=== PATIENT | female | born 1940 | race Caucasian/White ===

== ENCOUNTER 2017-04-19 19:52 | Emergency (ER) | payer MEDICARE, OTHER ==
[~2017-04-19] VITALS: Ht 167.6 cm; Wt 80.0 kg
[2017-04-19 20:55] LABS: BASOPHILS # (AUTO) 0.01 x10^3/uL (0-0.1); BASOPHILS % (AUTO) 0 % (0-1); EOSINOPHILS # (AUTO) 0.06 x10^3/uL (0-0.4); EOSINOPHILS % (AUTO) 2 % (1-7); LYMPHOCYTES # (AUTO) 0.79 x10^3/uL (1-3.4); LYMPHOCYTES % (AUTO) 24 % (22-44); MD NO; MEAN CORPUSCULAR HEMOGLOBIN 32.9 pg (27.0-34.8); MEAN CORPUSCULAR HGB CONC 34.7 g/dL (32.4-35.8); MEAN CORPUSCULAR VOLUME 94.9 fL (80-100); MEAN PLATELET VOLUME 7.7 fL (7.4-10.4); MONOCYTES % (AUTO) 15 % (2-9); NEUTROPHILS # (AUTO) 1.98 x10^3/uL (1.8-6.8); NEUTROPHILS % (AUTO) 59 % (42-75); PLATELET COUNT 135 x10^3/uL (130-400); RED BLOOD COUNT 3.89 x10^6/uL (3.82-5.3); RED CELL DISTRIBUTION WIDTH 13.2 % (9.6-15.2)
[2017-04-19 21:03] LABS: ANION GAP 7 mmol/L (5-15); CALCIUM 8.3 mg/dL (8.5-10.1); CHLORIDE 100 mmol/L (98-107)
[2017-04-19 21:07] LABS: ALANINE AMINOTRANSFERASE 20 U/L (12-78); ALKALINE PHOSPHATASE 71 U/L (45-117); BILIRUBIN,TOTAL 0.6 mg/dL (0.2-1.0); CREATININE 1.01 mg/dL (0.55-1.02); TOTAL PROTEIN 5.7 g/dL (6.4-8.2)
[2017-04-19 21:52] LABS: CULTURE INDICATED? YES; MICROSCOPIC INDICATED
[2017-04-19 23:35] VITALS: BP 143/79
== END 2017-04-19 23:37 | disposition home or self-care (01) ==
LOC: ED 22:04
DX: R41.82 Altered mental status, unspecified (principal); M25.511 Pain in right shoulder; N30.90 Cystitis, unspecified without hematuria; I10 Essential (primary) hypertension; G30.9 Alzheimer's disease, unspecified; E03.9 Hypothyroidism, unspecified; F02.80 Dementia in other diseases classified elsewhere, unspecified severity, without behavioral disturbance, psychotic disturbance, mood disturbance, and anxiety
CPT/HCPCS: 36415; 70450; 80053; 81001; 85025; 87086; 93005

== ENCOUNTER 2017-11-09 22:38 | Inpatient (IN) | payer MEDICARE, OTHER ==
[~2017-11-09] VITALS: Ht 170.2 cm; Wt 77.0 kg
[2017-11-09] MEDS ORDERED: ONDANSETRON 2MG/ML, 2ML ONE (22:54)
[2017-11-09] MEDS ORDERED: MORPHINE SULFATE 4 MG/ML, 1ML ONE (22:54)
[2017-11-09] MEDS ORDERED: MORPHINE SULFATE 4 MG/ML, 1ML IVPush PRN (23:00)
[2017-11-09] MEDS ORDERED: SODIUM CHLORIDE FLUSH 10ML SYR IVF ONE (23:00)
[2017-11-09] MEDS ORDERED: ONDANSETRON 2MG/ML, 2ML IVPush ONE (23:00)
[2017-11-09 23:06] LABS: BASOPHILS # (AUTO) 0.04 x10^3/uL (0-0.1); BASOPHILS % (AUTO) 1 % (0-1); EOSINOPHILS # (AUTO) 0.31 x10^3/uL (0-0.4); EOSINOPHILS % (AUTO) 5 % (1-7); LYMPHOCYTES # (AUTO) 1.57 x10^3/uL (1-3.4); LYMPHOCYTES % (AUTO) 26 % (22-44); MD NO; MEAN CORPUSCULAR HEMOGLOBIN 33.1 pg (27.0-34.8); MEAN CORPUSCULAR VOLUME 97.1 fL (80-100); MEAN PLATELET VOLUME 7.4 fL (7.4-10.4); MONOCYTES # (AUTO) 0.49 x10^3/uL (0.2-0.8); MONOCYTES % (AUTO) 8 % (2-9); NEUTROPHILS # (AUTO) 3.63 x10^3/uL (1.8-6.8); NEUTROPHILS % (AUTO) 60 % (42-75); PLATELET COUNT 184 x10^3/uL (130-400); RED BLOOD COUNT 4.23 x10^6/uL (3.82-5.3); RED CELL DISTRIBUTION WIDTH 13.7 % (9.6-15.2)
[2017-11-09 23:18] LABS: ALBUMIN 3.4 g/dL (3.4-5.0); ANION GAP 8 mmol/L (5-15); CALCIUM 9.1 mg/dL (8.5-10.1); CHLORIDE 93 mmol/L (98-107); CREATININE 0.69 mg/dL (0.55-1.02)
[2017-11-10] MEDS ORDERED: DIVA125T31 PO (00:34)
[2017-11-10] MEDS ORDERED: LISI-170 PO (00:34)
[2017-11-10] MEDS ORDERED: MELO15TA24 PO (00:34)
[2017-11-10] MEDS ORDERED: LEVO50TA5 PO (00:34)
[2017-11-10] MEDS ORDERED: MIRT15TA4 PO (00:34)
[2017-11-10] MEDS ORDERED: RISP1TAB3 PO (00:34)
[2017-11-10] MEDS ORDERED: POLY17PO18 PO (00:34)
[2017-11-10] MEDS: DIVALPROEX 125 MG TABLET.DR PO SCH ×2 (01:00→21:17)
[2017-11-10] MEDS: HEPARIN 5,000 UNITS/ML, 1ML SQ SCH ×3 (01:00→16:20)
[2017-11-10] MEDS ORDERED: ACETAMINOPHEN 325 MG TABLET PO PRN ×2 (01:00→14:00)
[2017-11-10] MEDS: PLEASE ENTER ALLERGIES MC SCH ×15 (01:00→15:43)
[2017-11-10] MEDS ORDERED: ONDANSETRON 2MG/ML, 2ML IVPush PRN (01:00)
[2017-11-10] MEDS ORDERED: BISACODYL 10 MG SUPP PR PRN (01:00)
[2017-11-10] MEDS ORDERED: POLYETHYLENE GLYCOL 17 GM PACKET PO PRN (01:00)
[2017-11-10] MEDS: SODIUM CHLORIDE 0.9% 1,000 ML IV SCH ×3 (01:37→18:16)
[2017-11-10 02:52] VITALS: BP 156/89
[2017-11-10 05:06] LABS: BASOPHILS # (AUTO) 0.02 x10^3/uL (0-0.1); BASOPHILS % (AUTO) 0 % (0-1); EOSINOPHILS # (AUTO) 0.01 x10^3/uL (0-0.4); EOSINOPHILS % (AUTO) 0 % (1-7); LYMPHOCYTES # (AUTO) 0.55 x10^3/uL (1-3.4); LYMPHOCYTES % (AUTO) 9 % (22-44); MD NO; MEAN CORPUSCULAR HEMOGLOBIN 33.3 pg (27.0-34.8); MEAN PLATELET VOLUME 7.6 fL (7.4-10.4); MONOCYTES # (AUTO) 0.41 x10^3/uL (0.2-0.8); MONOCYTES % (AUTO) 7 % (2-9); NEUTROPHILS # (AUTO) 4.92 x10^3/uL (1.8-6.8); NEUTROPHILS % (AUTO) 83 % (42-75); PLATELET COUNT 188 x10^3/uL (130-400); RED BLOOD COUNT 3.57 x10^6/uL (3.82-5.3); RED CELL DISTRIBUTION WIDTH 13.1 % (9.6-15.2)
[2017-11-10 05:17] LABS: ALANINE AMINOTRANSFERASE 10 U/L (12-78); ALBUMIN 2.6 g/dL (3.4-5.0); ANION GAP 6 mmol/L (5-15); CALCIUM 8.4 mg/dL (8.5-10.1); CHLORIDE 95 mmol/L (98-107)
[2017-11-10 05:20] LABS: ALKALINE PHOSPHATASE 67 U/L (45-117); BILIRUBIN,TOTAL 0.6 mg/dL (0.2-1.0); CREATININE 0.55 mg/dL (0.55-1.02); TOTAL PROTEIN 5.3 g/dL (6.4-8.2)
[2017-11-10 06:51] VITALS: BP 151/84
[2017-11-10] MEDS: MIRTAZAPINE 15 MG TABLET PO SCH (07:19)
[2017-11-10] MEDS: SENNA/DOCUSATE TABLET PO SCH (07:19)
[2017-11-10] MEDS: LISINOPRIL 20 MG TABLET PO SCH (07:19)
[2017-11-10] MEDS: LEVOTHYROXINE 50 MCG TABLET PO SCH (07:19)
[2017-11-10] MEDS: morphine SULFATE 10 MG/ML, 1ML IVPush PRN ×3 (08:51→19:47)
[2017-11-10] MEDS ORDERED: RISPERIDONE 1 MG PO SCH (09:00)
[2017-11-10 12:51] VITALS: BP 176/99
[2017-11-10] MEDS: ENALAPRILAT 1.25 MG/ML, 2ML IVPush PRN (13:13)
[2017-11-10] MEDS ORDERED: FENTANYL PF 100 MCG/2ML ONE (13:47)
[2017-11-10] MEDS ORDERED: HYDROmorphone 1 MG/ML, 1ML IV PRN (14:00)
[2017-11-10] MEDS ORDERED: LABETALOL 5MG/ML, 20ML IV PRN (14:00)
[2017-11-10] MEDS ORDERED: ONDANSETRON 2MG/ML, 2ML IV PRN (14:00)
[2017-11-10] MEDS ORDERED: ALBUTEROL/IPRATROPIUM 2.5MG/0.5MG, 3 ML NPPB PRN (14:00)
[2017-11-10] MEDS ORDERED: MIDAZOLAM 1 MG/ML, 2ML IV PRN (14:00)
[2017-11-10] MEDS ORDERED: FENTANYL PF 100 MCG/2ML IV PRN (14:00)
[2017-11-10] MEDS ORDERED: HALOPERIDOL 5 MG/ML IV PRN (14:00)
[2017-11-10] MEDS ORDERED: OXYcodone 5 MG/5 ML ORAL.SOL UDC PO PRN (14:00)
[2017-11-10] MEDS ORDERED: SUCCINYLCHOLINE 20 MG/ML, 10ML ONE (14:20)
[2017-11-10] MEDS ORDERED: LABETALOL 5MG/ML, 20ML ONE (14:20)
[2017-11-10] MEDS ORDERED: TRANEXAMIC ACID 100 MG/ML, 10ML ONE (14:49)
[2017-11-10] MEDS ORDERED: PROPOFOL 10 MG/ML, 20ML ONE (16:06)
[2017-11-10] MEDS ORDERED: ONDANSETRON 2MG/ML, 2ML ONE (16:06)
[2017-11-10] MEDS ORDERED: DEXAMETHASONE 4 MG/ML, 1ML ONE (16:06)
[2017-11-10] MEDS ORDERED: CEFAZOLIN 1,000 MG ONE (16:06)
[2017-11-10] MEDS ORDERED: ENALAPRILAT 1.25 MG/ML, 2ML ONE (16:23)
[2017-11-10] MEDS: MORPHINE SULFATE 4 MG/ML, 1ML IVPush PRN ×2 (16:47→17:24)
[2017-11-10] MEDS ORDERED: MORPHINE SULFATE 4 MG/ML, 1ML ONE (16:54)
[2017-11-10] MEDS ORDERED: ENALAPRILAT 1.25 MG/ML, 2ML IV ONE (17:00)
[2017-11-10 20:03] VITALS: BP 159/78
[2017-11-11] MEDS: morphine SULFATE 10 MG/ML, 1ML IVPush PRN ×2 (00:01→14:32)
[2017-11-11] MEDS: CEFAZOLIN PMX 1GM/50ML 50 ML IVPB SCH ×2 (00:01→08:27)
[2017-11-11 00:07] VITALS: BP 155/56
[2017-11-11] MEDS: HEPARIN 5,000 UNITS/ML, 1ML SQ SCH ×3 (01:08→15:41)
[2017-11-11 03:03] VITALS: BP 151/60
[2017-11-11 06:57] VITALS: BP 135/72
[2017-11-11] MEDS: SODIUM CHLORIDE 0.9% 1,000 ML IV SCH ×2 (08:27→20:57)
[2017-11-11] MEDS: MIRTAZAPINE 15 MG TABLET PO SCH (08:27)
[2017-11-11] MEDS: LEVOTHYROXINE 50 MCG TABLET PO SCH (08:27)
[2017-11-11] MEDS: OXYcodone IR 5MG TABLET PO SCH ×3 (08:27→20:57)
[2017-11-11] MEDS: SENNA/DOCUSATE TABLET PO SCH (08:27)
[2017-11-11] MEDS: RISPERIDONE 1 MG TABLET PO SCH (08:28)
[2017-11-11] MEDS: LISINOPRIL 20 MG TABLET PO SCH (08:30)
[2017-11-11 12:10] VITALS: BP 149/76
[2017-11-11 19:12] VITALS: BP 158/72
[2017-11-11] MEDS: DIVALPROEX 125 MG TABLET.DR PO SCH (20:57)
[2017-11-12] MEDS: HEPARIN 5,000 UNITS/ML, 1ML SQ SCH ×3 (01:12→17:55)
[2017-11-12 02:48] VITALS: BP 185/73
[2017-11-12 07:29] VITALS: BP 174/73
[2017-11-12] MEDS: LEVOTHYROXINE 50 MCG TABLET PO SCH (08:52)
[2017-11-12] MEDS: LISINOPRIL 20 MG TABLET PO SCH (08:52)
[2017-11-12] MEDS: SENNA/DOCUSATE TABLET PO SCH (08:52)
[2017-11-12] MEDS: OXYcodone IR 5MG TABLET PO SCH (08:52)
[2017-11-12] MEDS: MIRTAZAPINE 15 MG TABLET PO SCH (08:52)
[2017-11-12] MEDS: RISPERIDONE 1 MG TABLET PO SCH (08:53)
[2017-11-12 09:30] VITALS: BP 166/86
[2017-11-12 12:19] VITALS: BP 172/79
[2017-11-12] MEDS: ENALAPRILAT 1.25 MG/ML, 2ML IVPush PRN (12:26)
[2017-11-12] MEDS ORDERED: OXYcodone IR 5MG TABLET PO PRN (14:00)
[2017-11-12] MEDS: ACETAMINOPHEN 325 MG TABLET PO SCH ×2 (15:51→22:08)
[2017-11-12 15:57] LABS: MICROSCOPIC NOT IND
[2017-11-12 18:38] VITALS: BP 160/76
[2017-11-12] MEDS: LISINOPRIL 10 MG TABLET PO SCH (22:07)
[2017-11-12] MEDS: DIVALPROEX 125 MG TABLET.DR PO SCH (22:08)
[2017-11-13] MEDS: HEPARIN 5,000 UNITS/ML, 1ML SQ SCH ×2 (00:28→08:24)
[2017-11-13 00:33] VITALS: BP 170/81
[2017-11-13 07:30] VITALS: BP 153/79
[2017-11-13] MEDS ORDERED: SENN1TAB7 PO (07:33)
[2017-11-13] MEDS ORDERED: HEPA50002 SQ (07:33)
[2017-11-13] MEDS ORDERED: ACET325T14 PO (07:33)
[2017-11-13] MEDS ORDERED: LISI-167 PO (07:33)
[2017-11-13] MEDS ORDERED: RISPERIDONE 0.5 MG TABLET ONE (08:20)
[2017-11-13] MEDS: ACETAMINOPHEN 325 MG TABLET PO SCH (08:24)
[2017-11-13] MEDS: LEVOTHYROXINE 50 MCG TABLET PO SCH (08:24)
[2017-11-13] MEDS: SENNA/DOCUSATE TABLET PO SCH (08:24)
[2017-11-13] MEDS: MIRTAZAPINE 15 MG TABLET PO SCH (08:25)
[2017-11-13] MEDS: RISPERIDONE 1 MG TABLET PO SCH (08:26)
[2017-11-13] MEDS: LISINOPRIL 10 MG TABLET PO SCH (09:31)
[2017-11-13 13:30] VITALS: BP 150/72
== END 2017-11-13 13:56 | DRG 469 ==
LOC: ED 11-10 00:37 → EDIP 11-10 00:40 → 4NOR 11-10 01:25
PROVIDERS: ADMIT Hospitalist; ATTEND Internal Medicine
PROC: 0SRS0J9 Replacement of Left Hip Joint, Femoral Surface with Synthetic Substitute, Cemented, Open Approach (ICD-10-PCS; principal; 2017-11-10 18:45)
PROC: 0T9B70Z Drainage of Bladder with Drainage Device, Via Natural or Artificial Opening (ICD-10-PCS; 2017-11-12)
DX: S72.002A Fracture of unspecified part of neck of left femur, initial encounter for closed fracture (principal); E43 Unspecified severe protein-calorie malnutrition; E87.1 Hypo-osmolality and hyponatremia; F02.81 Dementia in other diseases classified elsewhere, unspecified severity, with behavioral disturbance; W18.39XA Other fall on same level, initial encounter; Y93.89 Activity, other specified; Y92.89 Other specified places as the place of occurrence of the external cause; Y99.8 Other external cause status; E03.9 Hypothyroidism, unspecified; Z68.26 Body mass index [BMI] 26.0-26.9, adult; F32.9 Major depressive disorder, single episode, unspecified; G30.9 Alzheimer's disease, unspecified; I10 Essential (primary) hypertension; S60.222A Contusion of left hand, initial encounter; Z66 Do not resuscitate
CPT/HCPCS: 36415; 71045; 80048; 80053; 81003; 82040; 85025; 93005; 96374; 96375; 99285; C1713; J0690; J1100; J1644; J2405; J2704; J3010; C1762; C1776; J0330; J2270; J7030